=== PATIENT | male | born 1995 | race Caucasian/White ===

== ENCOUNTER 2017-04-09 04:08 | Emergency (ER) | payer OTHER ==
[~2017-04-09] VITALS: Ht 185.4 cm; Wt 83.9 kg
[2017-04-09 04:11] VITALS: TEMP 36.7; Ht 185.4 cm; Wt 83.9 kg
--- NOTE | 2017-04-09 04:27 | EMERGENCY ROOM VISIT NOTE ---
ED Visit Note First contact with patient: 04:15 CHIEF COMPLAINT: Infection of the gluteal cleft HISTORY OF PRESENT ILLNESS: This 21-year-old male patient presents to the emergency department ambulatory after they noticed a hard, red, tender area to the gluteal cleft. It is slowly getting larger, more painful and tender. No fever, chills, or loss of appetite. There has been no drainage from the area. There was no injury to the area preceding the infection. They rate the pain as sharp and 9/10. Tetanus shot is up to date. They have tried nothing. The patient is not diabetic. The patient reports a history of pilonidal abscess that had to be incised and drained. He states he followed up with a general surgeon who told him that it seemed as though the cyst was gone and he did not have the surgery. He states he began to notice it again last week. REVIEW OF SYSTEMS: A 10 system review of systems was completed with positives and pertinent negatives listed in the HPI. ALLERGIES: No known drug allergies MEDICATIONS: None PMH: None SOCIAL HISTORY: The patient lives locally. He is a student. He does not smoke PHYSICAL EXAM: Vital Signs: Reviewed Nurse's notes, vital signs stable. GENERAL : This is a 21-year-old male, no acute distress, non toxic in appearance, well- developed well-nourished. SKIN: There is an erythematous indurated area to the gluteal cleft which measures about 2 cm in diameter. It is fluctuant but there is no pointing or drainage. There is a zone of inflammation around it but no lymphangitis. Capillary refill less than 2 seconds. MUSCULOSKELETAL: There is no limitation of the range of motion of the lower extremities. EMERGENCY DEPARTMENT COURSE: I examined the patient. After saline and Betadine cleansing and 6 mL of 1% buffered lidocaine anesthesia, the abscess was incised with a number 11 scalpel blade. A large amount of purulent material was released with more expressed by pressure. A swab was obtained for culture. The abscess cavity was further probed with a needle test car driver and the deep pocket expressed. The abscess cavity was then copiously irrigated with sterile saline under pressure. The area was then packed with bacitracin soaked packing. The area was cleaned with sterile saline and dressed with bacitracin and a bulky bandage. The patient tolerated the procedure well. The patient was discharged home in stable condition. Current/Historical Medications Scheduled Cephalexin Monohydrate (Keflex), 500 MG PO QID Sulfa/Trimethoprim (Bactrim Ds 800MG/160MG), 1 TAB PO BID Allergies Coded Allergies: No Known Allergies (Unverified , 04/09/17) Vital Signs Date Time Temp Pulse Resp B/P (MAP) Pulse Ox O2 Delivery O2 Flow Rate FiO2 04/09/17 05:58 70 18 141/71 97 04/09/17 04:11 36.7 72 18 150/80 96 Room Air Medications Administered Medications (Trade) Dose Ordered Sig/Nima Route Start Time Stop Time Status Last Admin Dose Admin Oxycodone/ Acetaminophen (Percocet 5-325mg Tab) 1 tab NOW ONCE PO 04/09/17 04:30 04/09/17 04:31 DC 04/09/17 04:30 1 TAB Departure Information Impression Primary Impression: Pilonidal abscess Dispostion Home / Self-Care Condition GOOD Prescriptions Cephalexin Monohydrate (Keflex) 500 Mg Cap 500 MG PO QID for 7 Days, #28 CAP Prov: Dedra Guardado PA-C 04/09/17 Sulfa/Trimethoprim (Bactrim Ds 800MG/160MG) Tab 1 TAB PO BID for 7 Days, #14 TAB Prov: Dedra Guardado PA-C 04/09/17 Referrals No Doctor, Assigned (PCP) Forms HOME CARE DOCUMENTATION FORM, IMPORTANT VISIT INFORMATION, WORK / SCHOOL INSTRUCTIONS Patient Instructions ED Cyst Pilonidal Infected IandD, My [facility] Additional Instructions Bactrim and Keflex as prescribed, until finished Return in 48 hours for wound recheck and packing removal Motrin 600 mg every 6-8 hours for moderate pain Oxy IR 1-2 tablets every 4-6 hrs as needed for worse pain. No driving or alcohol use with Oxy IR. Return sooner with any worsening symptoms, fevers Follow-up with general surgery for definitive management
[2017-04-09] MEDS ORDERED: XYLOCAINE 1%/SOD BICARB 20 ML VIAL INFIL ONE (04:30)
[2017-04-09] MEDS ORDERED: OXYCODONE/ACETAMINOPHEN 5-325 TAB PO ONE (04:30)
[2017-04-09] MEDS ORDERED: CEPH500C PO (05:21)
[2017-04-09] MEDS ORDERED: SULF800T23 PO (05:21)
[2017-04-09] MEDS ORDERED: CEPHALEXIN 500MG HOME PACK 1 EA BTL PO ONE (05:30)
[2017-04-09] MEDS ORDERED: OXYCODONE IR HOME PACK PO ONE (05:30)
[2017-04-09] MEDS ORDERED: SEPTRA DS HOME PACK 1 EA VIAL PO ONE (05:30)
[2017-04-09 05:58] VITALS: BP 141/71; PULSE 70; O2SAT 97
[2017-04-10] MEDS ORDERED: HYDR-5688 PO (19:11)
== END 2017-04-09 05:58 | disposition home or self-care (01) ==
LOC: C.EDB 04:10 → C.EDA 05:58
DX: L05.01 Pilonidal cyst with abscess (principal)

== ENCOUNTER 2017-04-10 18:20 | Emergency (ER) | payer OTHER ==
[~2017-04-10] VITALS: Ht 185.4 cm; Wt 87.2 kg
[~2017-04-10 18:20] MED LIST: CEPH500C PO; SULF800T23 PO
[2017-04-10 18:41] VITALS: TEMP 37.6; Ht 185.4 cm; Wt 87.2 kg
[2017-04-10] MEDS ORDERED: HYDR-5688 PO (19:11)
[2017-04-10] MEDS ORDERED: NORCO 5/325MG HOME PACK PO ONE (19:15)
[2017-04-10 19:30] VITALS: BP 127/81; PULSE 89; O2SAT 99
--- NOTE | 2017-04-11 02:31 | EMERGENCY ROOM VISIT NOTE ---
ED Visit Note First contact with patient: 18:46 CHIEF COMPLAINT: I'm here to have my cyst recheck and packing removed. HISTORY OF PRESENT ILLNESS: Mr. Izaguirre is a 21-year-old male who ambulates into the ED requesting wound recheck and packing removal from a pilonidal abscess. Patient reports 2 days ago he had an I&D procedure performed on a pilonidal abscess here in the emergency department. He reports he is feeling better but continues to have a large amount of pressure sensation in the area of the abscess. He rates this discomfort 6/10. The pain worsens when his abscess is palpated or he is sitting down. He has not taken any medications for his pain prior to arrival at the hospital. He denies any associated symptoms including fevers, chills, sweats, skin erythema, edema, purulent drainage. PHYSICAL EXAM: Vital Signs: Date Time Temp Pulse Resp B/P (MAP) Pulse Ox O2 Delivery O2 Flow Rate FiO2 04/10/17 19:30 89 127/81 99 04/10/17 18:41 37.6 98 18 137/81 98 Room Air General: 20-year-old male in distress due to pain, nontoxic-appearing, afebrile and hemodynamically stable. Buttocks: Over the top of the right gluteal fold the packing was removed from his abscess. The abscess immediately started draining a large amount of purulent material and I was able to express almost 10 mL. The area was irrigated and I replaced packing material into his abscess. There were no external signs of infection including redness/swelling or red streaking. ED COURSE: Patient is assessed as noted above. Patient's medication list and recent cultures were reviewed. Patient's abscess was unpacked and repacked with no significant difficulty but moderate pain to the patient. Patient was educated about today's findings and instructed on his treatment plan ; he verbalizes understanding and agreement with this plan. DISPOSITION: Patient discharged home in stable condition. Prior to discharge patient reports he was still having pain and requested medications. He did report that he was told he was be given a prescription for narcotic pain control but reports he did never received a prescription. So he was given a home pack of [place] and I wrote an additional prescription for [place] for the next 3 days; he was given appropriate narcotic precautions and his name was checked on the state database and no red flags were noted. CLINICAL IMPRESSION: Abscess recheck. Unpacking and repacking of abscess. PLAN: Patient was encouraged to continue his current prescriptions as prescribed. Patient was educated on his narcotic use. Patient was encouraged to follow-up at [facility] or return to the ED in 36-48 hours for recheck and packing removal. Patient was encouraged return ED sooner for fevers, uncontrolled pain, red streaking or any new/concerning symptoms.
--- NOTE | 2017-04-11 13:34 | Pharmacy Progress Note ---
ED Pharmacist Culture FollowUp Date of Service: Apr 11, 2017. Patient presented with pilondial abscess with subsequent I & D. Patient was sent home with a prescription for bactrim and kelfex x 7 days, which should cover the alpha strep. growing from the patient's deep wound culture. Patient returned a day later for repacking and stated he was feeling better. There were no new signs of external infection noted via provider exam.
== END 2017-04-10 19:30 | disposition home or self-care (01) ==
LOC: C.EDB 18:24 → C.EDD 19:30
DX: Z48.01 Encounter for change or removal of surgical wound dressing (principal)

== ENCOUNTER 2017-04-12 15:41 | Emergency (ER) | payer OTHER ==
[~2017-04-12] VITALS: Ht 185.4 cm; Wt 87.4 kg
[~2017-04-12 15:41] MED LIST changes: +HYDR-5688 PO
[2017-04-12 15:43] VITALS: BP 138/74; PULSE 57; TEMP 36.8; O2SAT 95; Ht 185.4 cm; Wt 87.4 kg
--- NOTE | 2017-04-12 16:08 | EMERGENCY ROOM VISIT NOTE ---
History First contact with patient: 15:46 Chief Complaint: PACKING REMOVAL Stated Complaint: UNPACKING CYST Nursing Triage Summary: Here for packing removal right buttocks, states no problems, but still has some pain (2 out of 10) History of Present Illness The patient is a 21 year old male who presents to the Emergency Room for packing removal of a pilonidal cyst that was drained initially on 04/09. The patient did return the following day, because he thought that it was time for the packing to be removed. He was seen in the emergency department. The wound was evaluated. The packing was removed, and the wound was repacked. He does note decreased drainage since the repacking. No fever or chills. The pain has decreased. Review of Systems 6 system review negative. Please see pertinent positives in the history of present illness section. Past Medical/Surgical History Unchanged from previous visit Social History Smoking Status: Never Smoker Occupation Status: [employer] student Current/Historical Medications Scheduled Cephalexin Monohydrate (Keflex), 500 MG PO QID Sulfa/Trimethoprim (Bactrim Ds 800MG/160MG), 1 TAB PO BID Scheduled PRN Hydrocodone/Acetaminophen 5MG/325MG (Simpson 5MG/325MG), 1-2 TABLET PO Q6H PRN for Pain Allergies Coded Allergies: No Known Allergies (Unverified , 04/09/17) Physical Exam Vital Signs Date Time Temp Pulse Resp B/P (MAP) Pulse Ox O2 Delivery O2 Flow Rate FiO2 04/12/17 15:43 36.8 57 16 138/74 95 Room Air Physical Exam VITALS: Vitals are noted on the nurse's note and reviewed by myself. Vital signs stable. GENERAL: 21-year-old male, in no acute distress, nondiaphoretic, well-developed well-nourished. SKIN: There is an incisional wound with packing approximately 1 cm in the gluteal cleft. Slight mild surrounding erythema. No area of induration. No significant tenderness. Mild drainage noted. HEAD: Normocephalic atraumatic. MUSCULOSKELETAL: Strength 5/5 throughout. NEURO: Patient was alert and oriented to person place and time. Normal sensation to touch. No focal neurological deficits. Medical Decision & Procedures ED Course The patient was seen and examined Packing was removed Discharge instructions were thoroughly reviewed, and the patient was discharged in good condition Medical Decision Differential diagnosis: Well healing pilonidal cyst, abscess, sepsis This patient is a 21-year-old male that presented to the emergency department for packing removal of a pilonidal cyst that was originally packed on 04/09. It did require repacking one day afterwards. It is now healing well. There is mild erythema, but no area of fluctuance or induration. It is draining a small amount of fluid. Did not find repacking necessary. Cultures were reviewed. Antibiotics are appropriate. The patient was discharged with instructions to continue the antibiotics and finish the course. He was also given a prescription of Simpson, which he was advised to take as directed. He will return to the emergency department for any worsening symptoms such as fever, increased pain, swelling or redness to the area. Impression Primary Impression: Pilonidal cyst Departure Information Dispostion Home / Self-Care Condition GOOD Referrals No Doctor, Assigned (PCP) Patient Instructions My [facility] Additional Instructions The wound will continue to drain. Please change the dressing at least twice daily. Please clean the wound with soapy water twice daily. You may resume activity as tolerated Please finish the entire course of antibiotics Please take narcotic medication as prescribed. No drinking alcohol or drive well taking this medication as it will make you drowsy. If possible, you may continue to do sitz baths in a very clean tub twice daily to encourage further drainage. Watch for signs of increasing infection such as increased redness, swelling, pain or fever. You may want to see a general surgeon if this recurs.
== END 2017-04-12 16:18 | disposition home or self-care (01) ==
LOC: C.EDB 15:42 → C.EDD 16:18
DX: L05.91 Pilonidal cyst without abscess (principal)